=== PATIENT | male | born 1985 | race Caucasian/White ===

== ENCOUNTER 2019-03-14 09:28 | Emergency (ER) | payer MEDICAID ==
[~2019-03-14] VITALS: Ht 180.3 cm; Wt 68.2 kg
[2019-03-14 10:00] LABS: BASOPHILS % (AUTO) 0.8 % (0-1); EOSINOPHILS # (AUTO) 0.1 X10'3 (0-0.9); EOSINOPHILS % (AUTO) 1.1 % (0-6); HEMATOCRIT 46.3 % (42.0-52.0); HEMOGLOBIN 15.5 g/dl (14.0-17.9); LYMPHOCYTES # (AUTO) 1.3 X10'3 (1.1-4.8); LYMPHOCYTES % (AUTO) 21.5 % (21-51); MEAN CORPUSCULAR HEMOGLOBIN 31.4 PG (27.0-31.0); MEAN CORPUSCULAR HGB CONC 33.5 g/dL (33.0-36.5); MEAN CORPUSCULAR VOLUME 93.5 FL (78-98); MONOCYTES # (AUTO) 0.5 X10'3 (0-0.9); MONOCYTES % (AUTO) 7.7 % (2-12); NEUTROPHILS # (AUTO) 4.1 X10'3 (1.8-7.7); NEUTROPHILS % (AUTO) 68.9 % (42-75); PLATELET COUNT 146 X10'3 (140-440); RED BLOOD COUNT 4.95 X10'6 (4.70-6.10); RED CELL DISTRIBUTION WIDTH 14.1 % (11.5-14.5)
[2019-03-14 10:12] LABS: ALANINE AMINOTRANSFERASE 16 U/L (12-78); ALBUMIN 4.5 G/DL (3.4-5.0); ALBUMIN/GLOBULIN RATIO 1.3 (1.1-1.5); ALKALINE PHOSPHATASE 96 IU/L (46-116); ANION GAP 13 (8-16); ASPARTATE AMINO TRANSFERASE 18 U/L (10-37); BILIRUBIN,TOTAL 2.8 MG/DL (0.1-1.0); BLOOD UREA NITROGEN 14 MG/DL (7-18); BUN/CREATININE RATIO 14.1 (5.4-32.0); CALCIUM 9.5 MG/DL (8.5-10.1); CHLORIDE 107 MMOL/L (99-107); CREATININE 0.99 MG/DL (0.60-1.10); GLUCOSE 116 MG/DL (70-104); POTASSIUM 3.6 MMOL/L (3.5-5.1); SODIUM 144 MMOL/L (135-145); TOTAL CARBON DIOXIDE 24.2 MMOL/L (24-32); TOTAL PROTEIN 7.9 G/DL (6.4-8.2); eGFR 87 ML/MIN
[2019-03-14] MEDS ORDERED: clonazePAM 1mg tablet PO ONE (10:20)
[2019-03-14 10:21] LABS: PROTHROMBIN TIME 11.5 SECONDS (9.0-12.0)
[2019-03-14 10:22] LABS: INR 1.1 INR; PARTIAL THROMBOPLASTIN TIME 29 SECONDS (22-32)
[2019-03-14] MEDS ORDERED: CLON2TAB PO (11:14)
[2019-03-14 11:24] VITALS: BP 141/91
== END 2019-03-14 11:27 | disposition home or self-care (01) ==
LOC: ER 09:28
DX: R07.89 Other chest pain (principal); R06.02 Shortness of breath; R42 Dizziness and giddiness; R51 Headache; I49.9 Cardiac arrhythmia, unspecified; I48.91 Unspecified atrial fibrillation; Z95.0 Presence of cardiac pacemaker; Z98.890 Other specified postprocedural states; Z88.8 Allergy status to other drugs, medicaments and biological substances; Z79.899 Other long term (current) drug therapy
CPT/HCPCS: 36415; 71045; 80053; 84484; 85025; 85610; 85730; 93005; 99284

== ENCOUNTER 2019-03-25 19:02 | Emergency (ER) | payer MEDICAID ==
[~2019-03-25] VITALS: Ht 180.3 cm; Wt 50.6 kg
[~2019-03-25 19:02] MED LIST: CLON2TAB PO
[2019-03-25] MEDS ORDERED: HYDROmorphone 2mg tablet PO ONE (21:30)
[2019-03-25] MEDS ORDERED: diazepam 5mg tablet PO ONE (21:30)
[2019-03-25] MEDS ORDERED: HYDR-4353 PO (22:08)
[2019-03-25 22:37] VITALS: BP 116/74
== END 2019-03-25 22:45 | disposition home or self-care (01) ==
LOC: ER 19:02
DX: K40.90 Unilateral inguinal hernia, without obstruction or gangrene, not specified as recurrent (principal); I48.91 Unspecified atrial fibrillation; Z95.0 Presence of cardiac pacemaker; Z98.890 Other specified postprocedural states; Z88.6 Allergy status to analgesic agent
CPT/HCPCS: 99283

== ENCOUNTER 2019-07-02 23:32 | Emergency (ER) | payer MEDICAID ==
[~2019-07-02] VITALS: Ht 180.3 cm; Wt 63.4 kg
[2019-07-03] MEDS ORDERED: LORazepam 1 MG tablet PO ONE (00:10)
[2019-07-03 00:43] LABS: BASOPHILS % (AUTO) 0.7 % (0-1); EOSINOPHILS % (AUTO) 0.3 % (0-6); HEMATOCRIT 48.7 % (42.0-52.0); HEMOGLOBIN 16.3 g/dl (14.0-17.9); LYMPHOCYTES # (AUTO) 1.6 X10'3 (1.1-4.8); MEAN CORPUSCULAR HEMOGLOBIN 31.6 PG (27.0-31.0); MEAN CORPUSCULAR HGB CONC 33.5 g/dL (33.0-36.5); MEAN CORPUSCULAR VOLUME 94.3 FL (78-98); MEAN PLATELET VOLUME 9.4 FL (7.4-10.4); MONOCYTES # (AUTO) 0.5 X10'3 (0-0.9); MONOCYTES % (AUTO) 7.7 % (2-12); NEUTROPHILS # (AUTO) 4.7 X10'3 (1.8-7.7); NEUTROPHILS % (AUTO) 68.3 % (42-75); PLATELET COUNT 160 X10'3 (140-440); RED BLOOD COUNT 5.16 X10'6 (4.70-6.10); RED CELL DISTRIBUTION WIDTH 13.6 % (11.5-14.5); WHITE BLOOD COUNT 6.9 X10'3 (4.5-11.0)
[2019-07-03 00:51] VITALS: BP 137/68
[2019-07-03 01:10] LABS: ALANINE AMINOTRANSFERASE 20 U/L (12-78); ALBUMIN 4.8 G/DL (3.4-5.0); ALKALINE PHOSPHATASE 81 IU/L (46-116); ANION GAP 14 (8-16); ASPARTATE AMINO TRANSFERASE 13 U/L (10-37); BILIRUBIN,TOTAL 5.4 MG/DL (0.1-1.0); BLOOD UREA NITROGEN 13 MG/DL (7-18); BUN/CREATININE RATIO 12.3 (5.4-32.0); CALCIUM 9.5 MG/DL (8.5-10.1); CHLORIDE 101 MMOL/L (99-107); CREATININE 1.06 MG/DL (0.60-1.10); GLUCOSE 111 MG/DL (70-104); MAGNESIUM 1.9 MG/DL (1.5-2.4); POTASSIUM 3.5 MMOL/L (3.5-5.1); SODIUM 140 MMOL/L (135-145); eGFR 80 ML/MIN
[2019-07-03 01:53] LABS: PARTIAL THROMBOPLASTIN TIME 30 SECONDS (22-32)
[2019-07-03 02:00] LABS: ALBUMIN/GLOBULIN RATIO 1.3 (1.1-1.5); PHOSPHORUS 3.5 MG/DL (2.3-4.5); TOTAL PROTEIN 8.5 G/DL (6.4-8.2)
[2019-07-03] MEDS ORDERED: CLON-527 PO (02:32)
== END 2019-07-03 03:05 | disposition home or self-care (01) ==
LOC: ER 23:33
DX: F41.9 Anxiety disorder, unspecified (principal); I48.91 Unspecified atrial fibrillation; Z95.0 Presence of cardiac pacemaker; Z98.890 Other specified postprocedural states; Z88.8 Allergy status to other drugs, medicaments and biological substances; Z79.899 Other long term (current) drug therapy
CPT/HCPCS: 36415; 71045; 80053; 83735; 84100; 84484; 85025; 85610; 85730; 93005; 99284

== ENCOUNTER 2020-01-14 07:30 | Emergency (ER) | payer MEDICAID ==
[~2020-01-14] VITALS: Ht 180.3 cm; Wt 68.0 kg
[~2020-01-14 07:30] MED LIST changes: +CLON-527 PO
[2020-01-14] MEDS ORDERED: RIVA10TA PO (08:00)
[2020-01-14] MEDS ORDERED: LISI10TA4 PO (08:00)
[2020-01-14] MEDS ORDERED: METO-384 PO (08:03)
[2020-01-14] MEDS ORDERED: FLEC100T2 PO (08:03)
[2020-01-14] MEDS ORDERED: ondansetron/PF 4mg/2ml inj IV ONE ×2 (08:10→11:55)
[2020-01-14] MEDS ORDERED: normal saline 1000ML IV soln IVB ONE (08:10)
[2020-01-14 08:21] LABS: CLARITY,URINE CLEAR (Clear); COLOR,URINE YELLOW (Yellow); GLUCOSE, URINE NEGATIVE (Neg); KETONES,URINE NEGATIVE (Neg); LEUKOCYTE ESTERASE ,URINE NEGATIVE (Neg); NITRITES, URINE NEGATIVE (Neg); OCCULT BLOOD,URINE NEGATIVE (Neg); PROTEIN,URINE NEGATIVE (Neg)
[2020-01-14 08:23] LABS: UA COLLECTION TYPE CLN CATCH MIDSTREAM
[2020-01-14 08:24] LABS: EOSINOPHILS # (AUTO) 0.1 X10'3 (0-0.9); HEMATOCRIT 49.2 % (42.0-52.0); HEMOGLOBIN 16.9 g/dl (14.0-17.9); LYMPHOCYTES # (AUTO) 1.2 X10'3 (1.1-4.8); LYMPHOCYTES % (AUTO) 24.6 % (21-51); MEAN CORPUSCULAR HEMOGLOBIN 31.9 PG (27.0-31.0); MEAN CORPUSCULAR HGB CONC 34.2 g/dL (33.0-36.5); MEAN CORPUSCULAR VOLUME 93.3 FL (78-98); MEAN PLATELET VOLUME 8.8 FL (7.4-10.4); MONOCYTES # (AUTO) 0.4 X10'3 (0-0.9); MONOCYTES % (AUTO) 7.5 % (2-12); NEUTROPHILS # (AUTO) 3.2 X10'3 (1.8-7.7); NEUTROPHILS % (AUTO) 65.9 % (42-75); PLATELET COUNT 181 X10'3 (140-440); RED BLOOD COUNT 5.28 X10'6 (4.70-6.10); RED CELL DISTRIBUTION WIDTH 14.5 % (11.5-14.5); WHITE BLOOD COUNT 4.9 X10'3 (4.5-11.0)
[2020-01-14] MEDS ORDERED: RIVA20TA PO (08:25)
[2020-01-14 08:34] LABS: ALANINE AMINOTRANSFERASE 26 U/L (12-78); ALBUMIN 4.8 G/DL (3.4-5.0); ALKALINE PHOSPHATASE 99 IU/L (46-116); ANION GAP 9 (8-16); ASPARTATE AMINO TRANSFERASE 17 U/L (10-37); BILIRUBIN,TOTAL 4.8 MG/DL (0.1-1.0); BLOOD UREA NITROGEN 14 MG/DL (7-18); BUN/CREATININE RATIO 14.1 (5.4-32.0); CALCIUM 9.1 MG/DL (8.5-10.1); CHLORIDE 103 MMOL/L (99-107); CREATININE 0.99 MG/DL (0.60-1.10); GLUCOSE 129 MG/DL (70-104); POTASSIUM 3.4 MMOL/L (3.5-5.1); SODIUM 139 MMOL/L (135-145); TOTAL CARBON DIOXIDE 26.6 MMOL/L (24-32); eGFR 86 ML/MIN
[2020-01-14 08:35] LABS: ALBUMIN/GLOBULIN RATIO 1.4 (1.1-1.5); TOTAL PROTEIN 8.3 G/DL (6.4-8.2)
--- NOTE | 2020-01-14 08:53 | NUR ---
[facility] PACER INTERROGATED, WAITING RESULTS. VSS.
--- NOTE | 2020-01-14 08:56 | NUR ---
[facility] REPORT RECEIVED VIA FAX AND GIVEN TO
--- NOTE | 2020-01-14 09:27 | NUR ---
SPOKE WITH [employer] REP WHO VERIFIED PT HAS HAD HUNDREDS OF A-FLUTTER/FIB FAR BACK LAST JUNE 2019 AND IS NOT A NEW RHYTHM FOR PT. ADVISED.
[2020-01-14 12:58] VITALS: BP 136/89
[2020-01-14] MEDS ORDERED: ONDA4TAB6 PO (14:37)
== END 2020-01-14 18:32 | disposition home or self-care (01) ==
LOC: ER 07:30
DX: I48.91 Unspecified atrial fibrillation (principal); R11.2 Nausea with vomiting, unspecified; R19.7 Diarrhea, unspecified; F41.9 Anxiety disorder, unspecified; Z88.8 Allergy status to other drugs, medicaments and biological substances; Z79.899 Other long term (current) drug therapy; Z95.0 Presence of cardiac pacemaker; Z98.890 Other specified postprocedural states
CPT/HCPCS: 36415; 71045; 80053; 81003; 85025; 93005; 96361; 96374; 96376; 99285; J2405; J7030

== ENCOUNTER 2020-06-14 12:57 | Emergency (ER) | payer MEDICAID ==
[~2020-06-14] VITALS: Ht 175.3 cm; Wt 80.0 kg
[~2020-06-14 12:57] MED LIST changes: +FLEC100T2 PO; +LISI10TA4 PO; +METO-384 PO; +ONDA4TAB6 PO; +RIVA20TA PO
[2020-06-14 13:34] LABS: BASOPHILS % (AUTO) 0.7 % (0-1); EOSINOPHILS # (AUTO) 0.1 X10'3 (0-0.9); EOSINOPHILS % (AUTO) 1.3 % (0-6); HEMOGLOBIN 14.7 g/dl (14.0-17.9); LYMPHOCYTES # (AUTO) 1.2 X10'3 (1.1-4.8); LYMPHOCYTES % (AUTO) 25.6 % (21-51); MEAN CORPUSCULAR HEMOGLOBIN 31.8 PG (27.0-31.0); MEAN CORPUSCULAR HGB CONC 33.4 g/dL (33.0-36.5); MEAN CORPUSCULAR VOLUME 95.3 FL (78-98); MEAN PLATELET VOLUME 9.4 FL (7.4-10.4); MONOCYTES # (AUTO) 0.4 X10'3 (0-0.9); MONOCYTES % (AUTO) 8.2 % (2-12); NEUTROPHILS % (AUTO) 64.2 % (42-75); PLATELET COUNT 134 X10'3 (140-440); RED BLOOD COUNT 4.62 X10'6 (4.70-6.10); RED CELL DISTRIBUTION WIDTH 13.2 % (11.5-14.5); WHITE BLOOD COUNT 4.7 X10'3 (4.5-11.0)
[2020-06-14 13:46] LABS: ALANINE AMINOTRANSFERASE 16 U/L (12-78); ALBUMIN 4.3 G/DL (3.4-5.0); ALBUMIN/GLOBULIN RATIO 1.3 (1.1-1.5); ALKALINE PHOSPHATASE 74 IU/L (46-116); ANION GAP 9 (8-16); ASPARTATE AMINO TRANSFERASE 12 U/L (10-37); BILIRUBIN,TOTAL 2.9 MG/DL (0.1-1.0); BLOOD UREA NITROGEN 13 MG/DL (7-18); BUN/CREATININE RATIO 10.9 (5.4-32.0); CALCIUM 8.4 MG/DL (8.5-10.1); CHLORIDE 107 MMOL/L (99-107); CREATININE 1.19 MG/DL (0.60-1.10); GLUCOSE 102 MG/DL (70-104); POTASSIUM 3.6 MMOL/L (3.5-5.1); SODIUM 142 MMOL/L (135-145); TOTAL CARBON DIOXIDE 26.5 MMOL/L (24-32); TOTAL PROTEIN 7.6 G/DL (6.4-8.2); eGFR 70 ML/MIN
[2020-06-14 15:57] VITALS: BP 138/99
== END 2020-06-14 15:57 | disposition home or self-care (01) ==
LOC: ER 12:57
DX: I10 Essential (primary) hypertension (principal); H53.8 Other visual disturbances; R07.89 Other chest pain; I48.91 Unspecified atrial fibrillation; F41.9 Anxiety disorder, unspecified; Z95.0 Presence of cardiac pacemaker; Z98.890 Other specified postprocedural states; Z88.8 Allergy status to other drugs, medicaments and biological substances; Z79.899 Other long term (current) drug therapy
CPT/HCPCS: 36415; 71045; 80053; 84484; 85025; 93005; 99285

== ENCOUNTER 2020-07-08 15:10 | Emergency (ER) | payer MEDICAID ==
[~2020-07-08] VITALS: Ht 180.3 cm; Wt 63.6 kg
[2020-07-08] MEDS ORDERED: aspirin 325mg tablet PO ONE (16:00)
[2020-07-08 16:05] LABS: BASOPHILS % (AUTO) 0.4 % (0-1); EOSINOPHILS % (AUTO) 0.5 % (0-6); HEMATOCRIT 49.1 % (42.0-52.0); HEMOGLOBIN 16.4 g/dl (14.0-17.9); LYMPHOCYTES # (AUTO) 1.1 X10'3 (1.1-4.8); LYMPHOCYTES % (AUTO) 14.1 % (21-51); MEAN CORPUSCULAR HEMOGLOBIN 31.6 PG (27.0-31.0); MEAN CORPUSCULAR HGB CONC 33.4 g/dL (33.0-36.5); MEAN CORPUSCULAR VOLUME 94.5 FL (78-98); MONOCYTES # (AUTO) 0.5 X10'3 (0-0.9); MONOCYTES % (AUTO) 6.2 % (2-12); NEUTROPHILS % (AUTO) 78.8 % (42-75); PLATELET COUNT 218 X10'3 (140-440); RED CELL DISTRIBUTION WIDTH 13.7 % (11.5-14.5); WHITE BLOOD COUNT 7.6 X10'3 (4.5-11.0)
[2020-07-08 16:13] LABS: ALANINE AMINOTRANSFERASE 21 U/L (12-78); ALBUMIN/GLOBULIN RATIO 1.4 (1.1-1.5); ALKALINE PHOSPHATASE 92 IU/L (46-116); ANION GAP 12 (8-16); ASPARTATE AMINO TRANSFERASE 19 U/L (10-37); BILIRUBIN,TOTAL 4.2 MG/DL (0.1-1.0); BLOOD UREA NITROGEN 16 MG/DL (7-18); BUN/CREATININE RATIO 17.6 (5.4-32.0); CALCIUM 9.5 MG/DL (8.5-10.1); CHLORIDE 99 MMOL/L (99-107); CREATININE 0.91 MG/DL (0.60-1.10); GLUCOSE 131 MG/DL (70-104); POTASSIUM 3.4 MMOL/L (3.5-5.1); SODIUM 138 MMOL/L (135-145); TOTAL CARBON DIOXIDE 26.7 MMOL/L (24-32); TOTAL PROTEIN 8.6 G/DL (6.4-8.2); eGFR > 90 ML/MIN
[2020-07-08] MEDS ORDERED: hyDROXYzine 50 mg/ml injection ***IM only IM ONE (16:45)
[2020-07-08 17:42] VITALS: BP 137/91
== END 2020-07-08 17:44 | disposition home or self-care (01) ==
LOC: ER 15:11
DX: R07.89 Other chest pain (principal); F13.239 Sedative, hypnotic or anxiolytic dependence with withdrawal, unspecified; I48.91 Unspecified atrial fibrillation; I10 Essential (primary) hypertension; F41.9 Anxiety disorder, unspecified; Z98.890 Other specified postprocedural states; Z88.8 Allergy status to other drugs, medicaments and biological substances; Z79.899 Other long term (current) drug therapy; Y92.89 Other specified places as the place of occurrence of the external cause
CPT/HCPCS: 36415; 71045; 80053; 83880; 84484; 85025; 93005; 96372; 99285; J3410

== ENCOUNTER 2020-08-17 21:08 | Emergency (ER) | payer MEDICAID ==
[~2020-08-17] VITALS: Ht 180.3 cm; Wt 78.8 kg
[2020-08-17 22:01] LABS: BASOPHILS % (AUTO) 0.9 % (0-1); EOSINOPHILS # (AUTO) 0.1 X10'3 (0-0.9); EOSINOPHILS % (AUTO) 2.7 % (0-6); HEMATOCRIT 38.2 % (42.0-52.0); HEMOGLOBIN 12.8 g/dl (14.0-17.9); LYMPHOCYTES # (AUTO) 1.5 X10'3 (1.1-4.8); LYMPHOCYTES % (AUTO) 27.8 % (21-51); MEAN CORPUSCULAR HGB CONC 33.5 g/dL (33.0-36.5); MEAN CORPUSCULAR VOLUME 95.5 FL (78-98); MONOCYTES # (AUTO) 0.5 X10'3 (0-0.9); MONOCYTES % (AUTO) 9.7 % (2-12); NEUTROPHILS # (AUTO) 3.1 X10'3 (1.8-7.7); NEUTROPHILS % (AUTO) 58.9 % (42-75); PLATELET COUNT 149 X10'3 (140-440); RED CELL DISTRIBUTION WIDTH 14.6 % (11.5-14.5); WHITE BLOOD COUNT 5.3 X10'3 (4.5-11.0)
[2020-08-17 22:13] LABS: ALANINE AMINOTRANSFERASE 24 U/L (12-78); ALBUMIN 4.1 G/DL (3.4-5.0); ALBUMIN/GLOBULIN RATIO 1.3 (1.1-1.5); ALKALINE PHOSPHATASE 77 IU/L (46-116); ANION GAP 2 (8-16); ASPARTATE AMINO TRANSFERASE 19 U/L (10-37); BILIRUBIN,TOTAL 2.6 MG/DL (0.1-1.0); BLOOD UREA NITROGEN 14 MG/DL (7-18); BUN/CREATININE RATIO 12.8 (5.4-32.0); CALCIUM 9.2 MG/DL (8.5-10.1); CHLORIDE 103 MMOL/L (99-107); CREATININE 1.09 MG/DL (0.60-1.10); GLUCOSE 88 MG/DL (70-104); POTASSIUM 3.9 MMOL/L (3.5-5.1); SODIUM 136 MMOL/L (135-145); TOTAL CARBON DIOXIDE 30.7 MMOL/L (24-32); TOTAL PROTEIN 7.2 G/DL (6.4-8.2); eGFR 77 ML/MIN
[2020-08-17 23:37] VITALS: BP 108/68
== END 2020-08-17 23:39 | disposition home or self-care (01) ==
LOC: ER 21:09
DX: R60.0 Localized edema (principal); M79.89 Other specified soft tissue disorders; I48.91 Unspecified atrial fibrillation; I10 Essential (primary) hypertension; F41.9 Anxiety disorder, unspecified; Z95.0 Presence of cardiac pacemaker; Z98.890 Other specified postprocedural states; Z88.8 Allergy status to other drugs, medicaments and biological substances; Z79.899 Other long term (current) drug therapy
CPT/HCPCS: 36415; 71045; 80053; 83880; 84484; 85025; 93005; 99285

== ENCOUNTER 2020-09-21 22:27 | Emergency (ER) | payer MEDICAID ==
[~2020-09-21] VITALS: Ht 180.3 cm; Wt 77.0 kg
[2020-09-21 23:27] LABS: BASOPHILS % (AUTO) 0.5 % (0-1); EOSINOPHILS # (AUTO) 0.1 X10'3 (0-0.9); EOSINOPHILS % (AUTO) 1.8 % (0-6); HEMATOCRIT 38.5 % (42.0-52.0); HEMOGLOBIN 12.9 g/dl (14.0-17.9); LYMPHOCYTES # (AUTO) 1.4 X10'3 (1.1-4.8); LYMPHOCYTES % (AUTO) 17.2 % (21-51); MEAN CORPUSCULAR HEMOGLOBIN 32.2 PG (27.0-31.0); MEAN CORPUSCULAR HGB CONC 33.5 g/dL (33.0-36.5); MEAN PLATELET VOLUME 9.4 FL (7.4-10.4); MONOCYTES # (AUTO) 0.7 X10'3 (0-0.9); MONOCYTES % (AUTO) 7.9 % (2-12); NEUTROPHILS % (AUTO) 72.6 % (42-75); PLATELET COUNT 196 X10'3 (140-440); RED BLOOD COUNT 4.01 X10'6 (4.70-6.10); RED CELL DISTRIBUTION WIDTH 13.3 % (11.5-14.5); WHITE BLOOD COUNT 8.2 X10'3 (4.5-11.0)
[2020-09-21 23:42] LABS: ALANINE AMINOTRANSFERASE 21 U/L (12-78); ALBUMIN 4.4 G/DL (3.4-5.0); ALKALINE PHOSPHATASE 146 IU/L (46-116); ANION GAP 10 (8-16); ASPARTATE AMINO TRANSFERASE 20 U/L (10-37); BILIRUBIN,TOTAL 2.1 MG/DL (0.1-1.0); BLOOD UREA NITROGEN 45 MG/DL (7-18); BUN/CREATININE RATIO 23.6 (5.4-32.0); CALCIUM 9.2 MG/DL (8.5-10.1); CHLORIDE 96 MMOL/L (99-107); CREATININE 1.91 MG/DL (0.60-1.10); GLUCOSE 115 MG/DL (70-104); POTASSIUM 3.4 MMOL/L (3.5-5.1); SODIUM 140 MMOL/L (135-145); TOTAL CARBON DIOXIDE 34.3 MMOL/L (24-32); TOTAL PROTEIN 8.6 G/DL (6.4-8.2); eGFR 40 ML/MIN
[2020-09-21 23:44] LABS: PARTIAL THROMBOPLASTIN TIME 30 SECONDS (22-32)
[2020-09-21 23:49] LABS: MAGNESIUM 2.4 MG/DL (1.5-2.4)
[2020-09-22 00:09] LABS: CLARITY,URINE CLEAR (Clear); COLOR,URINE YELLOW (Yellow); GLUCOSE, URINE NEGATIVE (Neg); KETONES,URINE NEGATIVE (Neg); LEUKOCYTE ESTERASE ,URINE NEGATIVE (Neg); NITRITES, URINE NEGATIVE (Neg); OCCULT BLOOD,URINE NEGATIVE (Neg); PROTEIN,URINE NEGATIVE (Neg)
[2020-09-22 00:11] LABS: UA COLLECTION TYPE URINAL
[2020-09-22] MEDS ORDERED: bumetanide 0.25mg/ml 4ml vial IV SCH ×2 (00:20→08:00)
[2020-09-22 00:48] LABS: URINE AMPHETAMINE SCREEN NEGATIVE (Neg); URINE BARBITUATE SCREEN NEGATIVE (Neg); URINE BENZODIAZEPINES SCREEN NEGATIVE (Neg); URINE CANNABINOID SCREEN POSITIVE (Neg); URINE COCAINE SCREEN NEGATIVE (Neg); URINE METHADONE SCREEN NEGATIVE (Neg); URINE OPIATE SCREEN NEGATIVE (Neg); URINE PHENCYCLIDINE SCREEN NEGATIVE (Neg)
[2020-09-22] MEDS ORDERED: LORazepam 2 mg/ml vial IV ONE ×4 (04:35→15:10)
--- NOTE | 2020-09-22 04:36 | NUR ---
spoke with [facility] transfer [facility] COVID test must be complete and faxed to them for the to except pt for bed
--- NOTE | 2020-09-22 05:54 | NUR ---
FAXED COVID RESULTS NEGATIVE @05:55
--- NOTE | 2020-09-22 06:00 | NUR ---
RN CALLED [facility] WITH NEGATIVE COVID RESULT. [facility] AT [facility] ACCEPTED RESULT AND RESULT WAS ALSO FAXED TO FACILITY.
[2020-09-22] MEDS ORDERED: BUPR1FIL3 SL ×2 (06:50)
[2020-09-22] MEDS ORDERED: OLAN2.5T28 PO (06:50)
[2020-09-22] MEDS ORDERED: BACL-11 PO (06:50)
[2020-09-22] MEDS ORDERED: GABA800T11 PO (06:50)
[2020-09-22] MEDS ORDERED: POTA10TA19 PO (06:50)
[2020-09-22] MEDS ORDERED: FERR325T28 PO (06:50)
[2020-09-22] MEDS ORDERED: BUPR1TAB44 SL (08:29)
[2020-09-22] MEDS ORDERED: GABA300C PO (08:35)
[2020-09-22] MEDS ORDERED: clonazePAM 1mg tablet PO PRN (08:40)
[2020-09-22] MEDS ORDERED: BUME1TAB8 PO (08:45)
[2020-09-22] MEDS ORDERED: lisinopril 10 MG tablet PO SCH (09:00)
[2020-09-22] MEDS ORDERED: METOPROLOL SUCCINATE 50 MG PO SCH (09:00)
[2020-09-22] MEDS ORDERED: potassium chloride 10mEq ER tablet PO SCH (09:00)
[2020-09-22] MEDS ORDERED: flecainide 50mg tablet PO SCH (09:00)
[2020-09-22] MEDS ORDERED: bumetanide 1mg tablet PO SCH (09:00)
[2020-09-22] MEDS ORDERED: metoprolol succinate 25mg (24-HOUR) SR. Tablet PO SCH (09:00)
--- NOTE | 2020-09-22 09:51 | NUR ---
pt sleeping quietly at this time. no appetite did not eat his breakfast.
--- NOTE | 2020-09-22 10:48 | NUR ---
CALLED [phone] WANTED UPDATE ON HER
--- NOTE | 2020-09-22 11:14 | NUR ---
Call placed to [facility], no beds available yet.
[2020-09-22] MEDS ORDERED: morphine 4 MG/ML inj SYRINge IV ONE ×2 (11:25→15:00)
--- NOTE | 2020-09-22 13:32 | NUR ---
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 THOUGHT HE MISSED A CALL THRU THE ANSWERING SERVICE. HE IS NOW TALKING TO DR. ROA.
--- NOTE | 2020-09-22 15:25 | NUR ---
TRANSPORT TEAM HERE, REPORT GIVEN. MS 4MG IV GIVEN FOR LOWER EXT PAIN AND ATIVAN 1MG IV GIVEN PRIOR TO TRANSFER.
[2020-09-22 15:41] VITALS: BP 124/82
--- NOTE | 2020-09-22 15:46 | NUR ---
PTS KNIFE WAS HANDED OFF TO TRANSPORT NURSE.
[2020-09-22] MEDS ORDERED: baclofen 10mg tablet PO SCH (16:00)
[2020-09-22] MEDS ORDERED: buprenorphine/naloxone 2-0.5mg sublingual tablet SL SCH (16:00)
[2020-09-22] MEDS ORDERED: ondansetron 4mg rapidly disintigrating tab PO SCH (16:00)
[2020-09-22] MEDS ORDERED: gabapentin 300mg capsule PO SCH (16:00)
[2020-09-22] MEDS ORDERED: rivaroxaban 20mg tablet PO SCH (18:00)
[2020-09-23] MEDS ORDERED: buprenorphine/naloxone 8MG-2MG SUBlingual film SL SCH (08:00)
[2020-09-23] MEDS ORDERED: ferrous sulfate 325mg tablet PO SCH (08:00)
[2020-09-23] MEDS ORDERED: OLANZapine 2.5MG tablet PO SCH (08:00)
== END 2020-09-22 15:48 | disposition short-term general hospital (02) ==
LOC: ER 22:29
DX: N17.9 Acute kidney failure, unspecified (principal); I50.9 Heart failure, unspecified; I48.91 Unspecified atrial fibrillation; I10 Essential (primary) hypertension; F41.9 Anxiety disorder, unspecified; Z95.0 Presence of cardiac pacemaker; Z98.890 Other specified postprocedural states; Z88.8 Allergy status to other drugs, medicaments and biological substances; Z79.899 Other long term (current) drug therapy
CPT/HCPCS: 36415; 71045; 80053; 80305; 81003; 83036; 83735; 83880; 84484; 85025; 85610; 85730; 87635; 93005; 93971; 96374; 96375; 96376; 99285; C9803; J2060; J2270; J3490

== ENCOUNTER 2020-11-23 17:01 | Emergency (ER) | payer MEDICAID ==
[~2020-11-23] VITALS: Ht 180.3 cm; Wt 77.3 kg
[~2020-11-23 17:01] MED LIST changes: +BACL-11 PO; +BUME1TAB8 PO; +BUPR1FIL3 SL; +BUPR1TAB44 SL; -CLON-527 PO; +GABA300C PO; +OLAN2.5T28 PO
[2020-11-23] MEDS ORDERED: aspirin 81mg tab.chew PO ONE (17:05)
[2020-11-23 17:32] LABS: BASOPHILS # (AUTO) 0.1 X10'3 (0-0.2); BASOPHILS % (AUTO) 1.5 % (0-1); EOSINOPHILS # (AUTO) 0.2 X10'3 (0-0.9); HEMATOCRIT 37.8 % (42.0-52.0); HEMOGLOBIN 12.5 g/dl (14.0-17.9); MEAN CORPUSCULAR HEMOGLOBIN 32.1 PG (27.0-31.0); MEAN CORPUSCULAR HGB CONC 33.2 g/dL (33.0-36.5); MEAN CORPUSCULAR VOLUME 96.8 FL (78-98); MEAN PLATELET VOLUME 9.2 FL (7.4-10.4); MONOCYTES # (AUTO) 0.4 X10'3 (0-0.9); MONOCYTES % (AUTO) 5.8 % (2-12); NEUTROPHILS # (AUTO) 4.7 X10'3 (1.8-7.7); NEUTROPHILS % (AUTO) 74.7 % (42-75); PLATELET COUNT 191 X10'3 (140-440); RED BLOOD COUNT 3.91 X10'6 (4.70-6.10); RED CELL DISTRIBUTION WIDTH 13.9 % (11.5-14.5); WHITE BLOOD COUNT 6.3 X10'3 (4.5-11.0)
[2020-11-23 17:47] LABS: ALANINE AMINOTRANSFERASE 28 U/L (12-78); ALBUMIN 4.4 G/DL (3.4-5.0); ALBUMIN/GLOBULIN RATIO 1.1 (1.1-1.5); ALKALINE PHOSPHATASE 134 IU/L (46-116); ANION GAP 12 (8-16); ASPARTATE AMINO TRANSFERASE 22 U/L (10-37); BILIRUBIN,TOTAL 1.4 MG/DL (0.1-1.0); BLOOD UREA NITROGEN 25 MG/DL (7-18); BUN/CREATININE RATIO 19.4 (5.4-32.0); CALCIUM 9.1 MG/DL (8.5-10.1); CHLORIDE 101 MMOL/L (99-107); CREATININE 1.29 MG/DL (0.60-1.10); GLUCOSE 168 MG/DL (70-104); POTASSIUM 3.5 MMOL/L (3.5-5.1); SODIUM 141 MMOL/L (135-145); TOTAL CARBON DIOXIDE 28.1 MMOL/L (24-32); TOTAL PROTEIN 8.3 G/DL (6.4-8.2); eGFR 63 ML/MIN
[2020-11-23 17:53] LABS: MAGNESIUM 2.3 MG/DL (1.5-2.4)
--- NOTE | 2020-11-23 19:52 | NUR ---
INTERROGATED PT PACEMAKER, [employer] CALLED BACK, PT HAD 30 SECOND RUN A-FLUTTER WITH VENTRICLE RATE 108 AT 1600. MD BATISTA
[2020-11-23 22:03] VITALS: BP 101/65
== END 2020-11-23 22:00 | disposition home or self-care (01) ==
LOC: ER 17:02
DX: R00.2 Palpitations (principal); I48.91 Unspecified atrial fibrillation; I11.0 Hypertensive heart disease with heart failure; I50.9 Heart failure, unspecified; F41.9 Anxiety disorder, unspecified; Z86.69 Personal history of other diseases of the nervous system and sense organs; Z95.0 Presence of cardiac pacemaker; Z98.890 Other specified postprocedural states; Z88.8 Allergy status to other drugs, medicaments and biological substances; Z79.899 Other long term (current) drug therapy
CPT/HCPCS: 36415; 71045; 80053; 83735; 83880; 84484; 85025; 93005; 99285

== ENCOUNTER 2021-08-06 14:13 | Emergency (ER) | payer MEDICAID ==
[~2021-08-06] VITALS: Ht 180.3 cm; Wt 90.0 kg
[~2021-08-06 14:13] MED LIST changes: +LISI10TA27 PO; -LISI10TA4 PO
[2021-08-06 14:43] LABS: BASOPHILS % (AUTO) 0.6 % (0-1); EOSINOPHILS % (AUTO) 0.3 % (0-6); HEMATOCRIT 45.2 % (42.0-52.0); HEMOGLOBIN 15.1 g/dl (14.0-17.9); LYMPHOCYTES # (AUTO) 1.2 X10'3 (1.1-4.8); LYMPHOCYTES % (AUTO) 19.5 % (21-51); MEAN CORPUSCULAR HEMOGLOBIN 30.8 PG (27.0-31.0); MEAN CORPUSCULAR HGB CONC 33.3 g/dL (33.0-36.5); MEAN CORPUSCULAR VOLUME 92.5 FL (78-98); MEAN PLATELET VOLUME 9.6 FL (7.4-10.4); MONOCYTES # (AUTO) 0.4 X10'3 (0-0.9); NEUTROPHILS # (AUTO) 4.4 X10'3 (1.8-7.7); NEUTROPHILS % (AUTO) 73.6 % (42-75); PLATELET COUNT 191 X10'3 (140-440); RED BLOOD COUNT 4.89 X10'6 (4.70-6.10); RED CELL DISTRIBUTION WIDTH 13.8 % (11.5-14.5); WHITE BLOOD COUNT 5.9 X10'3 (4.5-11.0)
[2021-08-06 15:12] LABS: ALANINE AMINOTRANSFERASE 41 U/L (12-78); ALBUMIN 4.9 G/DL (3.4-5.0); ALBUMIN/GLOBULIN RATIO 1.4 (1.1-1.5); ALKALINE PHOSPHATASE 128 IU/L (46-116); ANION GAP 12 (8-16); ASPARTATE AMINO TRANSFERASE 17 U/L (10-37); BILIRUBIN,DIRECT 0.5 MG/DL (0-0.3); BILIRUBIN,TOTAL 1.9 MG/DL (0.1-1.0); BLOOD UREA NITROGEN 21 MG/DL (7-18); BUN/CREATININE RATIO 16.3 (5.4-32.0); CALCIUM 9.4 MG/DL (8.5-10.1); CHLORIDE 104 MMOL/L (99-107); CREATININE 1.29 MG/DL (0.60-1.10); GLUCOSE 124 MG/DL (70-104); LIPASE < 50 U/L (73-393); POTASSIUM 3.3 MMOL/L (3.5-5.1); SODIUM 141 MMOL/L (135-145); TOTAL CARBON DIOXIDE 25.2 MMOL/L (24-32); TOTAL PROTEIN 8.4 G/DL (6.4-8.2); TROPONIN I < 0.04 NG/ML (0.0-0.05); eGFR 63 ML/MIN
[2021-08-06 16:05] VITALS: BP 135/86
[2021-08-06] MEDS ORDERED: LORA-269 PO (16:40)
[2021-08-06] MEDS ORDERED: LORazepam 1 MG tablet PO ONE (16:40)
== END 2021-08-06 16:39 | disposition home or self-care (01) ==
LOC: ER 14:13
DX: R07.89 Other chest pain (principal); I48.91 Unspecified atrial fibrillation; I11.0 Hypertensive heart disease with heart failure; I50.9 Heart failure, unspecified; F41.9 Anxiety disorder, unspecified; Z86.69 Personal history of other diseases of the nervous system and sense organs; Z95.0 Presence of cardiac pacemaker; Z98.890 Other specified postprocedural states; Z88.8 Allergy status to other drugs, medicaments and biological substances; Z79.899 Other long term (current) drug therapy
CPT/HCPCS: 36415; 71045; 80048; 80076; 83690; 84484; 85025; 93005; 99285

== ENCOUNTER 2021-11-12 20:53 | Emergency (ER) | payer MEDICAID ==
[~2021-11-12] VITALS: Ht 180.3 cm; Wt 72.0 kg
[~2021-11-12 20:53] MED LIST changes: +LORA-269 PO
[2021-11-12 21:47] LABS: NEUTROPHILS # (AUTO) 5.5 X10'3 (1.8-7.7)
[2021-11-12 21:48] LABS: BASOPHILS % (AUTO) 0.6 % (0-1); EOSINOPHILS # (AUTO) 0.2 X10'3 (0-0.9); HEMOGLOBIN 14.8 g/dl (14.0-17.9); LYMPHOCYTES # (AUTO) 1.3 X10'3 (1.1-4.8); MEAN CORPUSCULAR HEMOGLOBIN 32.3 PG (27.0-31.0); MEAN CORPUSCULAR HGB CONC 33.7 g/dL (33.0-36.5); MEAN CORPUSCULAR VOLUME 95.8 FL (78-98); MEAN PLATELET VOLUME 9.3 FL (7.4-10.4); MONOCYTES # (AUTO) 0.7 X10'3 (0-0.9); MONOCYTES % (AUTO) 9.1 % (2-12); NEUTROPHILS % (AUTO) 70.3 % (42-75); PLATELET COUNT 160 X10'3 (140-440); RED CELL DISTRIBUTION WIDTH 14.5 % (11.5-14.5); WHITE BLOOD COUNT 7.8 X10'3 (4.5-11.0)
[2021-11-12 22:03] LABS: ALANINE AMINOTRANSFERASE 38 U/L (12-78); ALBUMIN 4.5 G/DL (3.4-5.0); ALBUMIN/GLOBULIN RATIO 1.3 (1.1-1.5); ALKALINE PHOSPHATASE 116 IU/L (46-116); ANION GAP 9 (8-16); ASPARTATE AMINO TRANSFERASE 32 U/L (10-37); BILIRUBIN,TOTAL 1.5 MG/DL (0.1-1.0); BLOOD UREA NITROGEN 13 MG/DL (7-18); CALCIUM 9.1 MG/DL (8.5-10.1); CHLORIDE 101 MMOL/L (99-107); CREATININE 1.08 MG/DL (0.60-1.10); GLUCOSE 98 MG/DL (70-104); POTASSIUM 4.2 MMOL/L (3.5-5.1); SODIUM 138 MMOL/L (135-145); TOTAL CARBON DIOXIDE 27.7 MMOL/L (24-32); TOTAL PROTEIN 8.1 G/DL (6.4-8.2); eGFR 77 ML/MIN
[2021-11-12] MEDS ORDERED: morphine 4 MG/ML inj SYRINge IM ONE (23:35)
[2021-11-12] MEDS ORDERED: ondansetron 4mg rapidly disintigrating tab PO ONE (23:35)
[2021-11-12 23:59] VITALS: BP 133/81
== END 2021-11-13 00:07 | disposition home or self-care (01) ==
LOC: ER 20:54
DX: R07.9 Chest pain, unspecified (principal)
CPT/HCPCS: 36415; 71045; 80053; 83880; 84484; 85025; 93005; 96372; 99285; J2270

== ENCOUNTER 2021-11-20 14:04 | Emergency (ER) | payer MEDICAID ==
[~2021-11-20] VITALS: Ht 170.2 cm; Wt 50.0 kg
[2021-11-20 14:54] LABS: BASOPHILS # (AUTO) 0.1 X10'3 (0-0.2); BASOPHILS % (AUTO) 0.7 % (0-1); EOSINOPHILS % (AUTO) 0.2 % (0-6); HEMATOCRIT 45.9 % (42.0-52.0); HEMOGLOBIN 15.5 g/dl (14.0-17.9); LYMPHOCYTES # (AUTO) 1.5 X10'3 (1.1-4.8); LYMPHOCYTES % (AUTO) 14.8 % (21-51); MEAN CORPUSCULAR HEMOGLOBIN 32.4 PG (27.0-31.0); MEAN CORPUSCULAR HGB CONC 33.7 g/dL (33.0-36.5); MEAN CORPUSCULAR VOLUME 96.1 FL (78-98); MEAN PLATELET VOLUME 8.8 FL (7.4-10.4); MONOCYTES # (AUTO) 0.6 X10'3 (0-0.9); MONOCYTES % (AUTO) 5.7 % (2-12); NEUTROPHILS # (AUTO) 7.7 X10'3 (1.8-7.7); NEUTROPHILS % (AUTO) 78.6 % (42-75); PLATELET COUNT 211 X10'3 (140-440); RED BLOOD COUNT 4.78 X10'6 (4.70-6.10); RED CELL DISTRIBUTION WIDTH 14.2 % (11.5-14.5); WHITE BLOOD COUNT 9.8 X10'3 (4.5-11.0)
[2021-11-20 15:11] LABS: ALANINE AMINOTRANSFERASE 30 U/L (12-78); ALBUMIN 4.5 G/DL (3.4-5.0); ALBUMIN/GLOBULIN RATIO 1.2 (1.1-1.5); ALKALINE PHOSPHATASE 101 IU/L (46-116); ANION GAP 9 (8-16); ASPARTATE AMINO TRANSFERASE 23 U/L (10-37); BILIRUBIN,TOTAL 1.6 MG/DL (0.1-1.0); BLOOD UREA NITROGEN 12 MG/DL (7-18); BUN/CREATININE RATIO 11.9 (5.4-32.0); CALCIUM 9.8 MG/DL (8.5-10.1); CHLORIDE 103 MMOL/L (99-107); CREATININE 1.01 MG/DL (0.60-1.10); GLUCOSE 112 MG/DL (70-104); POTASSIUM 4.3 MMOL/L (3.5-5.1); SODIUM 140 MMOL/L (135-145); TOTAL CARBON DIOXIDE 27.9 MMOL/L (24-32); TOTAL PROTEIN 8.2 G/DL (6.4-8.2); eGFR 83 ML/MIN
[2021-11-20 15:17] LABS: MAGNESIUM 1.9 MG/DL (1.5-2.4)
[2021-11-20 15:55] VITALS: BP 142/76
== END 2021-11-20 16:10 | disposition home or self-care (01) ==
LOC: ER 14:05
DX: R07.89 Other chest pain (principal); R07.2 Precordial pain; I48.91 Unspecified atrial fibrillation; I11.0 Hypertensive heart disease with heart failure; I50.9 Heart failure, unspecified; F41.9 Anxiety disorder, unspecified; Z86.69 Personal history of other diseases of the nervous system and sense organs; Z95.0 Presence of cardiac pacemaker; Z98.890 Other specified postprocedural states; Z88.8 Allergy status to other drugs, medicaments and biological substances; Z79.899 Other long term (current) drug therapy
CPT/HCPCS: 36415; 71045; 80053; 83735; 83880; 84484; 85025; 85610; 93005; 99285